=== PATIENT | male | born 1955 | race Caucasian/White ===

== ENCOUNTER 2017-07-13 08:06 | Day surgery (SDC) | payer OTHER ==
[~2017-07-13] VITALS: Ht 198.1 cm; Wt 129.5 kg
[~2017-07-13 08:06] MED LIST: ABAC300; ALBU90OI; ALBU90OI INH; ALLO300; AMLO10 PO; BENZ100A PO; BUDE200IP IH; CETI5 PO; CHLO25B PO; CHOL10002 PO; CYCL10 PO; DOCU100 PO; DULERA 200 MCG/13 GM; FLUO20 PO; GEMF600 PO; HYDPAM50; HYDPAM50 PO; Hair, Skin & N1 EACH; Inderal 20 mg T20 MG PO; LEVOFLOXACIN750 MG; LEVSOD50; LISI5; LORA10ER PO; Lasix20 MG PO; Lopressor 25 mg25 MG; METO50 PO; MORP15ER PO; MORPHINE SULFAT30 MG; NORT25 PO; Nortriptyline H25 MG PO; OMEP20ER; OMEP20ER PO; OXYC5; PROP10 PO; PYRI100 PO; ROSU10TA; SENN187 PO; TIOT18
[2017-09-03] MEDS ORDERED: ASPI81CH (15:01)
[2017-09-03] MEDS ORDERED: URSO300 (15:02)
[2017-09-04] MEDS ORDERED: LACT10SY PO (07:10)
[2017-09-04] MEDS ORDERED: SPIR50 PO (07:12)
[2017-09-04] MEDS ORDERED: CALCA400CH PO (07:13)
[2018-04-14] MEDS ORDERED: Percocet 5-3251 EACH PO (17:34)
== END 2017-07-13 11:30 | disposition home or self-care (01) ==
LOC: ORSCSDS 08:06
PROVIDERS: Internal Medicine Gastroenterology
PROC: 0DJD8ZZ Inspection of Lower Intestinal Tract, Via Natural or Artificial Opening Endoscopic (ICD-10-PCS; principal; 2017-07-13 09:30)
PROC: 0DB68ZX Excision of Stomach, Via Natural or Artificial Opening Endoscopic, Diagnostic (ICD-10-PCS; principal; 2017-07-13 09:30)
PROC: 06L38CZ Occlusion of Esophageal Vein with Extraluminal Device, Via Natural or Artificial Opening Endoscopic (ICD-10-PCS; principal; 2017-07-13 09:30)
DX: K92.1 Melena (principal); I85.00 Esophageal varices without bleeding; R13.14 Dysphagia, pharyngoesophageal phase; K21.9 Gastro-esophageal reflux disease without esophagitis; K74.60 Unspecified cirrhosis of liver; K76.6 Portal hypertension; K31.89 Other diseases of stomach and duodenum; K64.8 Other hemorrhoids; I10 Essential (primary) hypertension; J44.9 Chronic obstructive pulmonary disease, unspecified; G47.33 Obstructive sleep apnea (adult) (pediatric); E03.9 Hypothyroidism, unspecified; Z79.899 Other long term (current) drug therapy; Z79.82 Long term (current) use of aspirin
CPT/HCPCS: 88305; 88342; J2250; J7120

== ENCOUNTER 2017-09-04 10:39 | Observation (INO) | payer OTHER ==
[~2017-09-04] VITALS: Ht 198.1 cm; Wt 100.0 kg
[~2017-09-04 10:39] MED LIST changes: +ASPI81CH; +CALCA400CH PO; +LACT10SY PO; +SPIR50 PO; +URSO300
[2017-09-06 10:07] LABS: Mean Corpuscular HGB 28.8 pg (26.0-34.0); Mean Corpuscular HGB Conc 31.4 g/dL (31.5-36.5); Mean Platelet Volume 9.9 fL (9.1-12.4); Platelet Count 142 K/mm3 (150-400); RDW Coefficient Variation 19.4 % (11.7-14.2); RDW Standard Deviation 62.8 fL (35.1-46.3); Red Blood Cell Count 3.82 M/mm3 (4.30-5.90); White Blood Cell Count 5.77 K/mm3 (4.00-11.30)
[2017-09-06 10:11] LABS: Mean Corpuscular Volume 92 fL (80-100)
[2017-09-06 10:26] LABS: Anion Gap 5 mmol/L (6-16); Blood Urea Nitrogen 8 mg/dL (8-24); Bun/Creatinine Ratio 11.5 (12.0-20.0); CO2, Blood 27 mmol/L (21-32); Calcium, Blood 8.6 mg/dL (8.5-10.1); Chloride, Blood 102 mmol/L (98-108); Glomerular Filtration Rate >60 (60-); Glucose, Blood 106 mg/dL (70-99); Sodium, Blood 134 mmol/L (136-145)
[2017-09-06] MEDS ORDERED: BUDE6HFA INH (15:50)
[2017-09-06] MEDS ORDERED: ALBU90OI61 INH (15:51)
== END 2017-09-08 11:52 | disposition home or self-care (01) ==
LOC: MHTC 10:39 → SDS 10:39 → ICUE 10:39 → SDS 10:40 → MEDS 09-05 19:40 → ICUE 09-05 19:40 → MHTC 09-05 20:54 → MEDS 09-05 20:54 → SDS 09-05 21:02 → MEDS 09-05 21:03 → SDS 09-06 07:55 → MEDS 09-06 07:55 → SDS 09-06 08:12 → MEDS 09-06 08:12 → SDS 09-06 08:13 → MEDS 09-06 08:13 → ENPENDDIS 09-07 12:00 → MEDS 09-08 11:52
PROVIDERS: Internal Medicine
DX: S32.592A Other specified fracture of left pubis, initial encounter for closed fracture (principal); S42.302A Unspecified fracture of shaft of humerus, left arm, initial encounter for closed fracture; R94.31 Abnormal electrocardiogram [ECG] [EKG]; R94.39 Abnormal result of other cardiovascular function study; K74.60 Unspecified cirrhosis of liver; J44.9 Chronic obstructive pulmonary disease, unspecified; E03.9 Hypothyroidism, unspecified; E78.5 Hyperlipidemia, unspecified; Z79.891 Long term (current) use of opiate analgesic; Z88.0 Allergy status to penicillin; Z88.8 Allergy status to other drugs, medicaments and biological substances; Z79.899 Other long term (current) drug therapy; Z79.82 Long term (current) use of aspirin; W10.9XXA Fall (on) (from) unspecified stairs and steps, initial encounter
CPT/HCPCS: 36415; 72170; 72192; 73552; 80048; 85027; 87070; 87081; 93454; 93971; 94640; 94760; 97110; 97162; 97166; 97530; 97535; 99152; 99153; C1760; C1769; G0378; G8978; G8979; G8987; G8988; J1644; J1650; J2250; J3010; J7030; Q9967

== ENCOUNTER 2018-11-15 10:21 | Emergency (ER) | payer OTHER ==
[~2018-11-15] VITALS: Ht 198.1 cm; Wt 131.1 kg
[~2018-11-15 10:21] MED LIST changes: +ALBU90OI61 INH; +BUDE6HFA INH; +Percocet 5-3251 EACH PO
== END 2018-11-15 13:44 | disposition home or self-care (01) ==
LOC: ER 10:21
DX: S80.212A Abrasion, left knee, initial encounter (principal); W05.0XXA Fall from non-moving wheelchair, initial encounter; J44.9 Chronic obstructive pulmonary disease, unspecified; F32.9 Major depressive disorder, single episode, unspecified; I12.0 Hypertensive chronic kidney disease with stage 5 chronic kidney disease or end stage renal disease; N18.6 End stage renal disease; Z79.899 Other long term (current) drug therapy; Z79.891 Long term (current) use of opiate analgesic; Z79.82 Long term (current) use of aspirin
CPT/HCPCS: 73030; 73200; 73562-LT; 99284-25

== ENCOUNTER 2018-11-17 15:17 | Emergency (ER) | payer OTHER ==
[~2018-11-17] VITALS: Ht 198.1 cm; Wt 127.0 kg
[2018-11-17 16:42] LABS: Source, Urine Catheter
[2018-11-17 16:46] LABS: Bilirubin, Urine Neg (Neg); Blood, Urine Neg (Neg); Glucose Qualitative, Urine Neg (Neg); Ketones, Urine Neg (Neg); Leukocyte Esterase, Urine Neg (Neg); Nitrite, Urine Neg (Neg); Protein, Urine Neg (Neg); Urobilinogen, Urine 1+ (Normal)
[2018-11-17 17:05] LABS: Appearance, Urine Clear (Clear); Color, Urine Yellow (P-Yellow)
== END 2018-11-17 18:13 | disposition home or self-care (01) ==
LOC: ER 15:17
PROVIDERS: Emergency Medicine
DX: R32 Unspecified urinary incontinence (principal); F32.9 Major depressive disorder, single episode, unspecified; J44.9 Chronic obstructive pulmonary disease, unspecified; I10 Essential (primary) hypertension; K72.90 Hepatic failure, unspecified without coma; Z87.891 Personal history of nicotine dependence
CPT/HCPCS: 51701; 72131; 81003; 99284-25